=== PATIENT | female | born 1980 ===

== ENCOUNTER 2021-04-25 08:52 | Outpatient (CLI) | payer OTHER, SELFPAY ==
[2021-04-25 09:39] LABS: Abs Immature Grans 0.13 10^3/uL (0.0-0.06); Absolute Basophil Count 0.09 10^3/uL (0.0-0.2); Absolute Eosinophil Count 0.47 10^3/uL (0.0-0.7); Absolute Lymphocyte Count 1.28 10^3/uL (1.2-3.4); Absolute Monocyte Count 0.47 10^3/uL (0.1-0.8); Eosinophils % 5.4; HCT 44.5 % (36.0-46.0); HGB 14.6 g/dL (11.2-15.7); Immature Grans % 1.5; Lymphocytes % 14.6; MCH 28.9 pg (27.0-33.0); MCHC 32.8 % (32.0-36.0); MCV 87.9 fL (80-95); MPV 9.6 fL (8.0-11.0); Monocytes % 5.4; Neutrophils % 72.1; Nucleated RBC 0 %; Platelet Count 325 10^3/uL (130-400); RBC 5.06 10^6/uL (3.93-5.22); RDW 12.5 % (11.7-14.6); RDW-SD 40.1 fL; WBC 8.74 10^3/uL (4.4-10.8)
[2021-04-25 12:14] LABS: ALT 17 U/L (14-59); AST 9 U/L (15-37); Albumin 3.5 g/dL (3.4-5.0); Alkaline Phosphatase 62 U/L (46-116); Anion Gap 9.7 mmol/L (3-11); BUN 14 mg/dL (7-18); Bilirubin, Total 0.4 mg/dL (0.2-1.0); CO2 28.3 mmol/L (21.0-32.0); CREATININE 0.7 mg/dL (0.55-1.02); Calcium 9.1 mg/dL (8.5-10.1); Chloride 105 mmol/L (98-107); Glucose 142 mg/dL (74-106); Magnesium 2.2 mg/dL (1.8-2.4); Potassium 3.6 mmol/L (3.5-5.1); Sodium 143 mmol/L (136-145); Total Protein 8.1 g/dL (6.4-8.2)
== END 2021-04-25 08:53 | disposition home or self-care (01) ==
PROVIDERS: PCP Nurse Practitioner Occupational Health; Visit Provider Internal Medicine
DX: C53.0 Malignant neoplasm of endocervix (principal)
CPT/HCPCS: 36415; 80053; 83735; 85025

== ENCOUNTER 2021-05-02 02:20 | Outpatient (CLI) | payer OTHER, SELFPAY ==
[2021-05-02 08:13] LABS: Abs Immature Grans 0.04 10^3/uL (0.0-0.06); Absolute Basophil Count 0.06 10^3/uL (0.0-0.2); Absolute Eosinophil Count 0.34 10^3/uL (0.0-0.7); Absolute Lymphocyte Count 0.61 10^3/uL (1.2-3.4); Absolute Monocyte Count 0.38 10^3/uL (0.1-0.8); Eosinophils % 5.5; HCT 42.4 % (36.0-46.0); HGB 14.4 g/dL (11.2-15.7); Immature Grans % 0.7; MCV 85.5 fL (80-95); MPV 9.5 fL (8.0-11.0); Monocytes % 6.2; Neutrophils % 76.6; Nucleated RBC 0 %; Platelet Count 242 10^3/uL (130-400); RBC 4.96 10^6/uL (3.93-5.22); RDW 12.1 % (11.7-14.6); WBC 6.13 10^3/uL (4.4-10.8)
[2021-05-02 08:24] LABS: ALT 17 U/L (14-59); AST 11 U/L (15-37); Albumin 3.4 g/dL (3.4-5.0); Alkaline Phosphatase 58 U/L (46-116); Anion Gap 10.2 mmol/L (3-11); BUN 15 mg/dL (7-18); Bilirubin, Total 0.3 mg/dL (0.2-1.0); CO2 27.8 mmol/L (21.0-32.0); CREATININE 0.8 mg/dL (0.55-1.02); Calcium 8.9 mg/dL (8.5-10.1); Chloride 101 mmol/L (98-107); Glucose 149 mg/dL (74-106); Magnesium 1.9 mg/dL (1.8-2.4); Potassium 3.2 mmol/L (3.5-5.1); Sodium 139 mmol/L (136-145); Total Protein 7.9 g/dL (6.4-8.2)
== END 2021-05-02 02:21 | disposition home or self-care (01) ==
LOC: LBO 02:20
PROVIDERS: PCP Nurse Practitioner Occupational Health; Visit Provider Internal Medicine
DX: C53.0 Malignant neoplasm of endocervix (principal)
CPT/HCPCS: 36415; 80053; 83735; 85025

== ENCOUNTER 2021-05-09 03:48 | Outpatient (CLI) | payer OTHER, SELFPAY ==
[2021-05-09 09:11] LABS: Abs Immature Grans 0.03 10^3/uL (0.0-0.06); Absolute Basophil Count 0.03 10^3/uL (0.0-0.2); Absolute Eosinophil Count 0.19 10^3/uL (0.0-0.7); Absolute Lymphocyte Count 0.33 10^3/uL (1.2-3.4); Absolute Monocyte Count 0.34 10^3/uL (0.1-0.8); Absolute Neutrophil Count 3.61 10^3/uL (1.2-6.7); Basophils % 0.7; Eosinophils % 4.2; HCT 40.6 % (36.0-46.0); HGB 13.9 g/dL (11.2-15.7); Immature Grans % 0.7; Lymphocytes % 7.3; MCH 29.3 pg (27.0-33.0); MCHC 34.2 % (32.0-36.0); MCV 85.5 fL (80-95); MPV 9.3 fL (8.0-11.0); Monocytes % 7.5; Neutrophils % 79.6; Nucleated RBC 0 %; Platelet Count 212 10^3/uL (130-400); RBC 4.75 10^6/uL (3.93-5.22); RDW 11.9 % (11.7-14.6); RDW-SD 36.6 fL; WBC 4.53 10^3/uL (4.4-10.8)
[2021-05-09 09:25] LABS: ALT 34 U/L (14-59); AST 20 U/L (15-37); Albumin 3.5 g/dL (3.4-5.0); Alkaline Phosphatase 50 U/L (46-116); Anion Gap 8.6 mmol/L (3-11); BUN 11 mg/dL (7-18); Bilirubin, Total 0.3 mg/dL (0.2-1.0); CO2 27.4 mmol/L (21.0-32.0); CREATININE 0.8 mg/dL (0.55-1.02); Calcium 8.9 mg/dL (8.5-10.1); Chloride 101 mmol/L (98-107); Glucose 125 mg/dL (74-106); Magnesium 1.6 mg/dL (1.8-2.4); Potassium 3.9 mmol/L (3.5-5.1); Sodium 137 mmol/L (136-145); Total Protein 7.5 g/dL (6.4-8.2)
== END 2021-05-09 03:49 | disposition home or self-care (01) ==
LOC: LBO 03:49
PROVIDERS: PCP Nurse Practitioner Occupational Health; Visit Provider Internal Medicine
DX: R30.0 Dysuria (principal); C53.0 Malignant neoplasm of endocervix
CPT/HCPCS: 36415; 80053; 81003; 81015; 83735; 85025; 87086

== ENCOUNTER 2021-05-09 19:47 | Outpatient (REF) | payer OTHER, SELFPAY ==
[2021-05-09 16:09] LABS: Bilirubin Negative (Negative); Blood Trace-intact (Negative); Clarity Cloudy (Clear); Glucose Negative (Negative); Ketones Negative (Negative); Leukocyte Esterase Large (Negative); Nitrite Negative (Negative); Urobilinogen 0.2 EU/dL (Up TO 0.2); pH 6.5 (5-8)
[2021-05-09 16:27] LABS: Bacteria Few HPF (Negative); C & S Indicated? Yes; Casts Negative LPF (Negative); Crystals Rare Amorphous HPF (Negative); Epithelial Cells Few HPF (Negative); Mucus Negative (Negative); RBC 0-2 HPF (0-2); WBC 20-50 HPF (0-5)
== END 2021-05-09 19:48 | disposition home or self-care (01) ==
LOC: LBN 19:47
PROVIDERS: PCP Nurse Practitioner Occupational Health; Visit Provider Radiology Radiation Oncology
DX: R30.0 Dysuria (principal); C53.0 Malignant neoplasm of endocervix
CPT/HCPCS: 81003; 81015; 87086

== ENCOUNTER 2021-05-16 02:29 | Outpatient (CLI) | payer OTHER, SELFPAY ==
[2021-05-16 09:38] LABS: Abs Immature Grans 0.02 10^3/uL (0.0-0.06); Absolute Basophil Count 0.02 10^3/uL (0.0-0.2); Absolute Eosinophil Count 0.17 10^3/uL (0.0-0.7); Absolute Lymphocyte Count 0.37 10^3/uL (1.2-3.4); Absolute Monocyte Count 0.38 10^3/uL (0.1-0.8); Absolute Neutrophil Count 3.04 10^3/uL (1.2-6.7); Basophils % 0.5; Eosinophils % 4.3; HCT 42.4 % (36.0-46.0); HGB 14.9 g/dL (11.2-15.7); Immature Grans % 0.5; Lymphocytes % 9.3; MCH 29.4 pg (27.0-33.0); MCHC 35.1 % (32.0-36.0); MCV 83.6 fL (80-95); MPV 9.3 fL (8.0-11.0); Monocytes % 9.5; Neutrophils % 75.9; Nucleated RBC 0 %; Platelet Count 157 10^3/uL (130-400); RBC 5.07 10^6/uL (3.93-5.22); RDW 11.9 % (11.7-14.6); RDW-SD 35.5 fL
[2021-05-16 10:06] LABS: ALT 32 U/L (14-59); AST 19 U/L (15-37); Albumin 3.8 g/dL (3.4-5.0); Alkaline Phosphatase 56 U/L (46-116); Anion Gap 11.5 mmol/L (3-11); BUN 10 mg/dL (7-18); Bilirubin, Total 0.3 mg/dL (0.2-1.0); CO2 28.5 mmol/L (21.0-32.0); CREATININE 0.8 mg/dL (0.55-1.02); Calcium 9.3 mg/dL (8.5-10.1); Chloride 100 mmol/L (98-107); Glucose 122 mg/dL (74-106); Magnesium 1.9 mg/dL (1.8-2.4); Potassium 3.5 mmol/L (3.5-5.1); Sodium 140 mmol/L (136-145); Total Protein 7.9 g/dL (6.4-8.2)
== END 2021-05-16 02:30 | disposition home or self-care (01) ==
LOC: LBO 02:29
PROVIDERS: PCP Nurse Practitioner Occupational Health; Visit Provider Internal Medicine
DX: C53.0 Malignant neoplasm of endocervix (principal)
CPT/HCPCS: 36415; 80053; 83735; 85025

== ENCOUNTER 2021-05-23 03:45 | Outpatient (CLI) | payer OTHER, SELFPAY ==
[2021-05-23 09:10] LABS: Abs Immature Grans 0.01 10^3/uL (0.0-0.06); Absolute Basophil Count 0.02 10^3/uL (0.0-0.2); Absolute Eosinophil Count 0.09 10^3/uL (0.0-0.7); Absolute Lymphocyte Count 0.27 10^3/uL (1.2-3.4); Absolute Monocyte Count 0.23 10^3/uL (0.1-0.8); Absolute Neutrophil Count 2.04 10^3/uL (1.2-6.7); Basophils % 0.8; Eosinophils % 3.4; HCT 35.1 % (36.0-46.0); HGB 12.2 g/dL (11.2-15.7); Immature Grans % 0.4; Lymphocytes % 10.2; MCHC 34.8 % (32.0-36.0); MCV 83.6 fL (80-95); MPV 10.4 fL (8.0-11.0); Monocytes % 8.6; Neutrophils % 76.6; Nucleated RBC 0 %; RDW 11.7 % (11.7-14.6); RDW-SD 34.8 fL; WBC 2.66 10^3/uL (4.4-10.8)
[2021-05-23 09:24] LABS: ALT 37 U/L (14-59); AST 17 U/L (15-37); Albumin 3.3 g/dL (3.4-5.0); Alkaline Phosphatase 60 U/L (46-116); Anion Gap 8.3 mmol/L (3-11); BUN 6 mg/dL (7-18); Bilirubin, Total 0.3 mg/dL (0.2-1.0); CO2 31.7 mmol/L (21.0-32.0); CREATININE 0.7 mg/dL (0.55-1.02); Calcium 8.6 mg/dL (8.5-10.1); Chloride 99 mmol/L (98-107); Glucose 117 mg/dL (74-106); Magnesium 1.5 mg/dL (1.8-2.4); Sodium 139 mmol/L (136-145); Total Protein 7.1 g/dL (6.4-8.2)
[2021-05-23 09:36] LABS: Diff Comment Agrees w/ Instrument; Platelet Count 56 10^3/uL (130-400); RBC Morphology Normal
== END 2021-05-23 03:46 | disposition home or self-care (01) ==
LOC: LBO 03:45
PROVIDERS: PCP Nurse Practitioner Occupational Health; Visit Provider Internal Medicine
DX: C53.0 Malignant neoplasm of endocervix (principal)
CPT/HCPCS: 36415; 80053; 83735; 85025

== ENCOUNTER 2022-05-24 00:26 | Outpatient (CLI) | payer OTHER, SELFPAY ==
--- NOTE | 2022-05-24 09:00 | DI.NM_ITS ---
Exam(s) NM HEPATOBILIARY CCK GRP EXAM: NM HEPATOBILIARY CCK GRP CLINICAL HISTORY: NAUSEA AND VOMITING R11.2. TECHNIQUE: Injected dose: 5 mCi Tc-99 mebrofenin Initial dynamic images: According to protocol Post-Gallbladder fillin.2 mcg CCK infusion. Addition images: According to protocol COMPARISON: US US ABD LTD - ONE ORGAN/QUAD from 03/29/2022 FINDINGS: Normal hepatic transit time. There is excretion into the small bowel with a slight delay. Prompt excretion into the gallbladder. The gallbladder ejection fraction is 34%. IMPRESSION: 1. Gallbladder ejection fraction of 34 % which is below normal. ([facility] normal ejection fraction is gr eater than 40%). This can be seen with gallbladder dyskinesia. SN guidelines: Gallbladder visualization should be present by 3 hours. Delayed [id number] seymour sit beyond 60 min raises the suspicion for partial common bile duct (CBD) obstruction. Gallbladder ejection fraction <35% has a good correlation with acalculous disease (i.e., chronic acal culous cholecystitis, cystic duct syndrome, sphincter of Oddi disease).
[2022-05-24] MEDS: Sincalide 5 MCG VIAL 1.2 MCG IJ (12:05)
== END 2022-05-24 00:46 ==
LOC: DI 00:27
PROVIDERS: PCP Nurse Practitioner Occupational Health; Visit Provider Internal Medicine
DX: R11.2 Nausea with vomiting, unspecified (principal)
CPT/HCPCS: 78227